=== PATIENT | female | born 1955 | race Caucasian/White ===

== ENCOUNTER → 2023-01-24 08:15 | Outpatient (BNVA) | payer MEDICARE, SELFPAY | PROVIDERS: PCP Family Medicine; Referring Provider Family Medicine; Visit Provider Psychiatry & Neurology Neurology | DX: R20.0 Anesthesia of skin (principal); R20.2 Paresthesia of skin; E07.9 Disorder of thyroid, unspecified; M54.9 Dorsalgia, unspecified; I73.9 Peripheral vascular disease, unspecified; R53.1 Weakness | CPT/HCPCS: 36415; 80201; 82607; 83735; 83921; 84155; 84165; 84439; 84443; 85025; 86140; 86160; 86162; 86235; 86255; 86334; 86376; 86431; 86592; 99203 ==

== ENCOUNTER 2023-02-21 08:52 | Outpatient (CLI) | payer MEDICARE, SELFPAY ==
--- NOTE | 2023-02-21 10:15 | MR_ITS ---
WS: [id number] MRI CERVICAL SPINE NONCONTRAST TECHNIQUE: Sagittal T1, T2 and STIR imaging. Axial T2, gradient, and fiesta imaging. CLINICAL INFORMATION: R20.0 - Anesthesia of skin COMPARISON: None. FINDINGS: Mild cervical curve. Straightening normal cervical lordosis. Slight retrolisthesis C3 on C4. Cord sig nal is normal. No high-grade central canal stenosis. C2-C3: Normal. C3-C4: Mild bulging with slight effacement of the ventral thecal sac. Mild facet arthropathy. Spinal canal and foramen are patent. C4-C5: Mild disc bulging with slight effacement of the ventral thecal sac. Mild facet arthropathy. Sp inal canal is patent. Mild RIGHT foraminal narrowing. C5-C6: Mild disc osteophytic ridging. Spinal canal is patent. Mild RIGHT and no significant LEFT fora geoffrey narrowing. Mild facet arthropathy. C6-C7: Mild disc bulging. Mild facet arthropathy. Spinal canal and foramen are patent. C7-T1: Normal. Visualized brain stem structures: Small vessel changes in the dorinda. Prevertebral soft tissues: Normal. IMPRESSION: 1. Straightening of the normal cervical lordosis. No high-grade central canal narrowing. Cord signal is normal. 2. Mild RIGHT C4-C5 and C5-C6 bony foraminal narrowing. 3. Mild facet arthropathy C3-C4 C4-C5 and C5-C6.
--- NOTE | 2023-02-21 11:00 | MR_ITS ---
WS: [id number] MRI LUMBAR SPINE NONCONTRAST TECHNIQUE: Sagittal T1, T2 and STIR imaging. Axial T1 and T2 imaging. CLINICAL INFORMATION: R20.0 - Anesthesia of skin COMPARISON: None. FINDINGS: Mild lumbar curve. No acute compression. Disc space narrowing worse at L5-S1. L1-L2: Normal. L2-L3: Mild facet arthropathy. Spinal canal and foramen are patent. L3-L4: Mild facet arthropathy. Spinal canal and foramen are patent. L4-L5: Mild annular bulging. Narrowing of the subarticular recess bilaterally. Mild facet arthropathy . Spinal canal and foramen are patent. L5-S1: Disc desiccation with disc space narrowing. LEFT hemilaminectomy. Spinal canal and foramen are patent. Visualized pelvic bony structures: Normal. Paravertebral soft tissues: Normal. IMPRESSION: 1. Mild lumbar curve. No acute compression. No high-grade central canal stenosis. 2. Disc space narrowing worse at L5-S1 with prior LEFT hemilaminectomy. 3. Mild annular bulge L4-5 with narrowing of the subarticular recess bilaterally. Spinal canal and f oramen are patent. 4. No other acute findings.
== END 2023-02-21 08:53 | disposition home or self-care (01) ==
LOC: RAD 08:53
PROVIDERS: PCP Family Medicine; Visit Provider Psychiatry & Neurology Neurology
DX: R20.0 Anesthesia of skin (principal); R20.2 Paresthesia of skin; M54.9 Dorsalgia, unspecified; M51.36 Other intervertebral disc degeneration, lumbar region; M99.53 Intervertebral disc stenosis of neural canal of lumbar region; M48.02 Spinal stenosis, cervical region; M47.812 Spondylosis without myelopathy or radiculopathy, cervical region; Z98.890 Other specified postprocedural states; I73.9 Peripheral vascular disease, unspecified; R53.1 Weakness
CPT/HCPCS: 36415; 72141; 72148; 85025; 86617; 86780

== ENCOUNTER 2023-02-21 11:30 | Outpatient (CLI) | payer MEDICARE, SELFPAY ==
[2023-02-21 12:04] LABS: Basophils # 0.1 10^3/uL (0.0-0.1); Eosinophils # 0.1 10^3/uL (0.0-0.8); Eosinophils % 0.9 %; Lymphocytes # 2.6 10^3/uL (0.8-4.8); Lymphocytes % 29.4 %; Mean Corpuscular HGB Conc 33.7 g/dL (30-55); Mean Corpuscular Hemoglobin 30.3 pg (27-33); Mean Platelet Volume 10.5 fL (7.4-10.4); Monocytes # 0.8 10^3/uL (0.2-0.9); Monocytes % 9.7 %; Neutrophils % 58.7 %; Nucleated Red Blood Cells % 0 %; Platelet Count 213 10^3/cmm (157-399); Red Blood Count 4.78 10^6/uL (3.85-5.65); Red Cell Distribution Width 12.2 % (12.1-15.1)
[2023-02-22 13:09] LABS: Lymes IGG WB <0.90 index
[2023-02-26 10:35] LABS: Treponema pallidum Ab NON-REACTIVE (NON-REACTIVE)
== END 2023-02-21 11:31 | disposition home or self-care (01) ==
LOC: LAB 11:31
PROVIDERS: PCP Family Medicine; Visit Provider Psychiatry & Neurology Neurology
DX: R20.0 Anesthesia of skin (principal); R20.2 Paresthesia of skin; I73.9 Peripheral vascular disease, unspecified; M54.9 Dorsalgia, unspecified; R53.1 Weakness
CPT/HCPCS: 36415; 85025; 86617; 86780

== ENCOUNTER → 2023-04-08 14:37 | Outpatient (BNVA) | payer MEDICARE, SELFPAY | PROVIDERS: PCP Family Medicine; Visit Provider Psychiatry & Neurology Neurology | DX: E11.51 Type 2 diabetes mellitus with diabetic peripheral angiopathy without gangrene (principal); R20.0 Anesthesia of skin | CPT/HCPCS: 99212 ==